=== PATIENT | male | born 1935 | race Caucasian/White ===

== ENCOUNTER → 2016-07-02 | Outpatient (CLI) | payer OTHER ==
--- NOTE | 2016-07-02 11:48 | DIAGNOSTIC IMAGING REPORT ---
MRI OF THE BRAIN WITHOUT IV CONTRAST CLINICAL HISTORY: Chronic daily headache. COMPARISON STUDY: No priors. TECHNIQUE: MRI of the brain was performed utilizing various T1 and T2-weighted sequences in the axial, sagittal, and coronal planes. IV contrast was not administered for this examination. FINDINGS: Brain parenchyma: There are age-related involutional changes noting mild patchy subcortical and periventricular microangiopathic disease. There is no hemorrhage or mass effect. There is no restricted diffusion to suggest acute ischemia. Melendez-white matter differentiation is preserved. No extra-axial fluid collection is seen. The cerebellar tonsils are normal in configuration. Ventricles, sulci, and cisterns: Prominent secondary to involutional change. Pituitary and sella: Unremarkable. Intracranial vasculature: Normal flow voids are maintained at the skull base. Orbits: The bony orbits are grossly intact. Orbital contents are normal in appearance noting bilateral ocular lens implants. Sinuses and mastoids: There is moderate mucosal thickening within the left ethmoid sinuses in the left frontal sinus. Mild mucosal thickening is seen within the maxillary antrum, left sphenoid sinus, and the right ethmoid sinuses. The mastoid air cells are well pneumatized. Calvarium: Unremarkable. Cervical cord: Partially visualized cervical spinal cord is normal in morphology and signal intensity. IMPRESSION: 1. No acute intracranial abnormality. 2. Paranasal sinus disease as above. Electronically signed by: Puneet Coulter M.D. 07/02/2016 11:46 AM Dictated Date/Time: 07/02/2016 11:43 AM
== END | disposition home or self-care (01) ==
LOC: C.MRI 10:00
PROVIDERS: ATTEND Family Medicine
DX: H53.2 Diplopia (principal); R51 Headache; J32.8 Other chronic sinusitis

== ENCOUNTER → 2016-07-07 | Outpatient (CLI) | payer OTHER ==
[2016-07-07 13:27] LABS: ALT/SGPT 26 U/L (12-78); BLOOD UREA NITROGEN 31 mg/dl (7-18); BUN/CREATININE RATIO 17.2 (10-20); CALCIUM 9.5 mg/dl (8.5-10.1); CARBON DIOXIDE 29 mmol/L (21-32); CHLORIDE 104 mmol/L (98-107); CHOLESTEROL 153 mg/dl (0-200); GLUCOSE 130 mg/dl (70-99); POTASSIUM 4.1 mmol/L (3.5-5.1); SODIUM 140 mmol/L (136-145)
[2016-07-07 13:30] LABS: ALB/GLOB RATIO 1.2 (0.9-2); ALKALINE PHOSPHATASE 70 U/L (45-117); AST/SGOT 20 U/L (15-37); CHOLESTEROL/HDL RATIO 3.1; HDL CHOLESTEROL 50 mg/dl; LDL CHOLESTEROL CALCULATED 69 mg/dl; TRIGLYCERIDES 168 mg/dl (0-150); VERY LOW DENSITY LIPOPROT CALC 34 mg/dl
[2016-07-07 13:57] LABS: ESTIMATED AVERAGE GLUCOSE 151 mg/dl; HA1C FLAG Normal (Normal)
[2016-07-07 13:58] LABS: RATIO 17.8 mcg/mg (0-30.0)
== END | disposition home or self-care (01) ==
LOC: C.LABMFLN 07:46
PROVIDERS: ATTEND Family Medicine
DX: E11.9 Type 2 diabetes mellitus without complications (principal); E78.00 Pure hypercholesterolemia, unspecified; I10 Essential (primary) hypertension

== ENCOUNTER → 2016-12-30 | Outpatient (CLI) | payer OTHER ==
[2016-12-30 13:13] LABS: ESTIMATED AVERAGE GLUCOSE 151 mg/dl; HA1C FLAG Normal (Normal)
[2016-12-30 13:22] LABS: ALT/SGPT 26 U/L (12-78); AST/SGOT 20 U/L (15-37); BLOOD UREA NITROGEN 27 mg/dl (7-18); BUN/CREATININE RATIO 17.7 (10-20); CALCIUM 8.9 mg/dl (8.5-10.1); CARBON DIOXIDE 29 mmol/L (21-32); CHLORIDE 107 mmol/L (98-107); GLUCOSE 132 mg/dl (70-99); POTASSIUM 3.8 mmol/L (3.5-5.1); SODIUM 141 mmol/L (136-145)
[2016-12-30 13:25] LABS: ALB/GLOB RATIO 1.2 (0.9-2); ALKALINE PHOSPHATASE 77 U/L (45-117); CHOLESTEROL 123 mg/dl (0-200); CHOLESTEROL/HDL RATIO 2.7; HDL CHOLESTEROL 46 mg/dl; LDL CHOLESTEROL CALCULATED 54 mg/dl; TRIGLYCERIDES 113 mg/dl (0-150); VERY LOW DENSITY LIPOPROT CALC 23 mg/dl
== END | disposition home or self-care (01) ==
LOC: C.LABMFLN 08:27
PROVIDERS: ATTEND Family Medicine
DX: E11.9 Type 2 diabetes mellitus without complications (principal); E78.00 Pure hypercholesterolemia, unspecified; I10 Essential (primary) hypertension

== ENCOUNTER 2020-11-19 09:40 | Inpatient (IN) ==
--- NOTE | 2020-11-05 11:50 | PAT Medication Instructions ---
Medication Instructions Date of Service November 05, 2020 Home Medications Medication Instructions Recorded atenolol 100 mg-chlorthalidone 25 1 tab PO DAILY #90 tab 01/04/20 mg tablet pravastatin 80 mg tablet 80 mg PO DAILY #90 tab 01/04/20 allopurinol 100 mg tablet 100 mg PO BID #180 tab 04/18/20 gabapentin 100 mg capsule 100 mg PO TID #270 cap 05/26/20 metformin 500 mg tablet 500 mg PO DAILY #90 tab 10/13/20 atenolol 100 mg-chlorthalidone 25 mg tablet 1 tab PO DAILY pravastatin 80 mg tablet 80 mg PO DAILY allopurinol 100 mg tablet 100 mg PO BID gabapentin 100 mg capsule 100 mg PO TID metformin 500 mg tablet 500 mg PO DAILY DO NOT take the morning of surgery metformin 500 mg tablet 500 mg PO DAILY Take morning of surgery With a small sip of water, OTHERWISE NOTHING TO EAT OR DRINK AFTER MIDNIGHT: atenolol 100 mg-chlorthalidone 25 mg tablet 1 tab PO DAILY pravastatin 80 mg tablet 80 mg PO DAILY allopurinol 100 mg tablet 100 mg PO BID gabapentin 100 mg capsule 100 mg PO TID Take evening before surgery allopurinol 100 mg tablet 100 mg PO BID gabapentin 100 mg capsule 100 mg PO TID Other Notes If you have any questions please call us at [phone] or [phone] or [phone] or [phone]
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
[~2020-11-19 09:40] MED LIST: ACETAMINOPHEN 500 MG TAB PO SCH; BUPIVACAINE 0.5 % 5 MG/1 ML PF 10ML VIAL ONE; CeleBREX 200 MG CAP PO SCH; FAMOTIDINE 20 MG TAB PO SCH; GLYCOPYRROLATE 0.2 MG/ML VIAL ONE; LIDOCAINE 2% 2 ML VIAL/AMP(20MG/ML) INFIL ONE; LR 15ML/HR IV SCH; METOCLOPRAMIDE HCL 10 MG TABLET PO SCH; MIDAZOLAM HCL 1 MG/ML 2ML VIAL ONE; PROPOFOL IV EMULSION 10 MG/ML 20 ML VIAL IV ONE; ROPIVACAINE 0.5% 5 MG/ML 30 ML VIAL ONE; ROPIVACAINE 0.5% HCL/PF 150 MG, BUPIVACAINE 0.75% MPF 20 ML, EPINEPHrine 30MG/30ML (OR ... INSTIL SCH; Scopolamine 1 MG TDSY TD SCH; TRANEXAMIC ACID 1,000 MG **IV Intra-op IV SCH; TRANEXAMIC ACID 1,000 MG **IV Pre-op IV SCH; ceFAZolin 1000MG 1,000 MG/7.5 ML SYR IV SCH; fentaNYL citrate 100 MCG/2 ML VIAL ONE
[2020-11-19] MEDS ORDERED: ONDANSETRON INJ 2 MG/ML 2 ML VIAL IV PRN ×2 (10:39→16:48)
[2020-11-19] MEDS ORDERED: ePHEDrine sulfate 50 MG/ML AMP IV PRN (10:39)
[2020-11-19] MEDS ORDERED: fentaNYL citrate 100 MCG/2 ML VIAL IV PRN (10:39)
[2020-11-19] MEDS ORDERED: ATROPINE SULFATE 0.1 MG/ML 10ML SYR IV PRN (10:39)
[2020-11-19] MEDS ORDERED: HYDROmorphone INJ 2 MG/ML SYR/VIAL IV PRN (10:39)
[2020-11-19] MEDS: GABAPENTIN 300 MG CAP PO SCH ×2 (10:42→11:05)
--- NOTE | 2020-11-19 12:01 | History & Physical Bridge Note ---
Date of Service November 19, 2020 History & Physical Bridge Note I have examined the patient, reviewed the History & Physical and in the interval since the performance of the History & Physical I have noted the following changes of clinical significance: no changes noted
[2020-11-19] MEDS ORDERED: ORTHO JOINT ANESTHETIC ONE (12:05)
[2020-11-19] MEDS ORDERED: ePHEDrine sulfate 50 MG/ML SYR ONE (12:29)
[2020-11-19] MEDS ORDERED: PROPOFOL IV EMULSION 10 MG/ML 20 ML VIAL IV ONE ×2 (13:51→14:13)
--- NOTE | 2020-11-19 14:41 | Operative Report ---
Post Operative Report Pre & Post Diagnosis Operation Date: 11/19/20 11:25 Pre-Op Diagnosis: Unilateral Primary Osteoarthritis, Left Knee Post-Op Diagnosis: Unilateral Primary Osteoarthritis, Left Knee I identified the patient and participated in the time-out.: Yes Procedure Operation Date: 11/19/20 11:25 Actual Procedures p Left Total Knee Arthroplasty(Left), lateral release, superficial wound VAC- Archie Foley MD Surgeon Archie Foley MD Bit Grinder Gray MALIK Estimated Blood Loss 5 Findings Consistent with Post-Op Diagnosis Specimens Bone cuts Drains Hemovac Anesthesia Type MAC Spinal Regional Complications none Indications 85-year-old male with severe osteoarthritis in his left knee. Patient is [id number] has marked subluxation of the femur on the tibia and significant instability. Patient is [id number] medial and lateral compartments. Description of Procedure Patient taken to the operating room the size under spinal MAC regional anesthesia. Patient was placed supine on the operating table. A pneumatic tourniquet was placed about the left upper thigh. The left lower extremity was prepped and draped in sterile fashion. Knee exam demonstrated marked instability into varus and positive Reji exam. Patient good range of motion with 0 through 140 degrees range of motion. The leg was elevated exsanguinated with an Esmarch bandage and pneumatic tourniquet was raised to 300 millimeters of mercury. Skin incised sharply in longitudinal fashion. Subcutaneous flaps elevated. Incision was made through the medial retinaculum extending up in the mid third of the quadriceps tendon and down to the medial tibial tubercle. Intra-articular findings demonstrated severe tricompartmental osteoarthritis with complete eburnated bone medial and lateral compartments with significant bone loss in the medial tibial plateau posterior medially there was a chronic ACL tear and meniscus tears medial and lateral. The Skeed triathlon total knee arthroplasty system was used. To expose the knee the infrapatellar fat pad was resected. The meniscal remnants and posterior cruciate ligament were resected. The anterior fat pad over the femur in the area of the anterior flange of the femoral component was resected. Lateral synovial bands release. Some partial synovectomy was performed removing most of the inflamed synovial tissue. The femur was exposed. An intramedullary drill hole was made into the canal. A guide mary was placed. Distal femoral cutting guide was adjusted to resect a 5 degree valgus cut with 8 millimeters distal femur resected. After distal femoral cut this exposed a large cyst within the lateral femoral condyle measured at 2 x 3 and half centimeters. There was a good shell of cortical bone surrounding the cyst. The cyst material was curetted out thoroughly removing all this material down to exposed bone. The knee was extended and a subperiosteal peel lateral release was performed around the patella. Patella width was measured and width was reproduced using a freehand cut technique and a 33 x 9 symmetrical patella component. The 3 drill holes were made and the excess lateral facet was beveled off to prevent any impingement. Attention was taken back to the femur which was exposed with retractors and the femoral sizing guide was pinned in position. The drill holes were placed in 3 of external rotation to match epicondylar axis. Because the lateral hole was in the cyst area we had marked the epicondylar axis and reproduce this with the cutting guide placement. Femur sized for a 6 left posterior stabilized component. The 4-in-1 cutting block was placed and then the anterior posterior and chamfer cuts are made. The tibia was then subluxed. The external tibial cutting guide was just to make a perpendicular cut to the long axis of the tibia below the most deficient bone loss side. A lamina aligning inspector was used and the flexion extension gaps were balanced. This required medial posterior medial release and pie crusting MCL. All posterior osteophytes removed. All meniscal remnants were resected. A tibial cyst was curetted out which was smaller than the femoral cyst. The tibia exposed and the trial tibial component size 5 was externally rotated in line with the tibial tubercle and pinned in position. The punch for stem was used. The notch cutting device was centered appropriately and the femoral notch cut was made. The femoral trial was inserted. Trial tibial inserts were placed and size 13 gave balanced ligaments through flexion and extension. Patella tracking was assessed. The patella tracked slight lateral liftoff so a lateral release performed extra-articular leaving synovium intact and the patella tracked centrally. The trial components were then removed and the orthomix anesthetic cocktail was injected per protocol. The knee was then copiously irrigated with pulsatile lavage saline solution. Final components were then cemented with Simplex cement. Final components were 6 left posterior stabilized triathlon femoral component with distal fixation pegs, 5 universal tibial baseplate, 5 x 13 posterior stabilized tibial bearing insert and a 33 x 9 symmetrical patella.. After the cement cured the Betadine soak was used per protocol. Then pulsatile lavage irrigation performed and 2 Hemovac drains were brought out laterally. The quadriceps tendon and medial retinaculum were closed with figure of 8 #1 Vicryl sutures. The knee was taken through full range of motion and the repair was secure. The subcutaneous tissues were closed with 2-0 Vicryl sutures. Skin was closed with mike. A superficial wound VAC zack and Acticoat were applied. Patient procedure well. Gray MALIK was my physician retail event and sales assistant who assisted in patient positioning prepping and draping,leg positioning ,soft tissue retraction and instrument management and participated in the closing and will participate in postoperative care of the patient. The patient tolerated the procedure well. I attest to the content of the Intraoperative Record and any orders documented therein. Any exceptions are noted below.
--- NOTE | 2020-11-19 15:50 | XRay Report ---
LEFT KNEE 2 VIEWS History: Left total knee arthroplasty. Degenerative arthritis. Postop. FINDINGS: The patient is status post a left total knee arthroplasty. The hardware is intact. No fract ure or dislocation. Skin mike and surgical drains are in place. IMPRESSION: Left total knee arthroplasty. No evidence for hardware complication. ACT 112: Negative or not required by law. Electronically signed by: Be Palafox M.D. 11/19/2020 3:49 PM
[2020-11-19] MEDS ORDERED: TAMSULOSIN HCL 0.4 MG CAP PO PRN (16:48)
[2020-11-19] MEDS ORDERED: PHARMACY GLYCEMIC MGMT CONSULT PRN (16:48)
[2020-11-19] MEDS ORDERED: bisacodyL 10 MG SUPP PR PRN (16:48)
[2020-11-19] MEDS ORDERED: MAGNESIUM HYDROXIDE SUSP 30 ML UDC PO PRN (16:48)
[2020-11-19] MEDS ORDERED: HYDROmorphone INJ 0.5 MG/0.5 ML SYR IV PRN (16:48)
[2020-11-19] MEDS ORDERED: NALOXONE HCL 0.4 MG/1 ML VIAL/CARP IV PRN (16:48)
[2020-11-19] MEDS ORDERED: METOCLOPRAMIDE HCL INJ 5 MG/ML 2 ML VIAL IV PRN (16:48)
--- NOTE | 2020-11-19 16:59 | Anesthesiology Progress Note ---
Date of Service November 19, 2020 Anesthesia Post Procedure Vital Signs Vital Signs: Temp Pulse Pulse Resp BP BP Pulse Ox 11/19/20 16:00 36.1 C L 70 16 112/75 92 11/19/20 15:50 79 17 121/75 91 11/19/20 15:40 91 H 19 129/78 93 11/19/20 15:30 87 18 108/72 93 11/19/20 15:20 91 H 22 119/70 99 11/19/20 15:10 36.3 C L 98 H 15 113/76 98 11/19/20 11:50 85 21 124/66 95 11/19/20 10:16 36.4 C L 84 18 151/58 H 95 Transfer of Care Handoff Completed per policy Notes Mental Status: alert / awake / arousable and participated in evaluation Patient Amnestic to Procedure: Yes Nausea / Vomiting: adequately controlled Pain: adequately controlled Airway Patency, RR, SpO2: stable & adequate BP & HR: stable & adequate Hydration State: stable & adequate Anesthetic Complications: no major complications apparent
[2020-11-19] MEDS: SODIUM CHLORIDE 0.9% 1000ML 1,000 ML IV SCH (17:48)
[2020-11-19] MEDS: Scopolamine CHECK PATCH PLACEMENT SCH ×2 (17:50→23:32)
[2020-11-19] MEDS: INSULIN ASPART 100 UNITS/ML 3 ML PEN SC SCH ×2 (18:25→21:06)
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
[2020-11-19] MEDS ORDERED: DEXTROSE 50% 50 ML SYRINGE IV PRN (19:42)
[2020-11-19] MEDS ORDERED: GLUCOSE 40% GEL 15 GM TUBE PO PRN (19:42)
[2020-11-19] MEDS ORDERED: GLUCAGON FOR INJ 1 MG VIAL SQ PRN (19:42)
[2020-11-19] MEDS ORDERED: GLUCOSE 10 TABS/TUBE PO PRN (19:42)
[2020-11-19] MEDS ORDERED: CARBOHYDRATES FOR HYPOGLYCEMIA PO PRN (19:42)
--- NOTE | 2020-11-19 19:56 | Pharmacy Report ---
Glycemic Ortho Sign Off Note - Date of Service November 19, 2020 - Scope Glycemic Pharmacist consulted for glycemic control and to write orders per [facility] inpatient glycemic control protocol. - Objective Accuchecks BSG (last 24hrs):: 11/19/20 11/19/20 11/19/20 09:57 15:18 16:57 POC Glucose 146 H 114 H 127 H - Assessment * Pt is maintained on oral antidiabeticagent[s]as anoutpatient with excellent control per recent A1c * Oral agents are not recommended for inpatient use d/t drug interactions, changing PO intake, and difficulty titrating for acute hyper/hypoglycemia. * Recommended regimen for inpatient use is SQ insulin * Low stress weight based insulin dosing appropriate since patient has minimal risk factors for insulin resistance (i.e. no steroids). * Appropriate to DC insulin and resume outpatient antidiabetic regimen at discharge * Goal is to maintain BSGs <200 mg/dl (ideally <150 mg/dl) to prevent post op complications - Plan For Inpatient Glycemic Control * Basal insulin * Not needed based on A1c, pre-op BSGs, and minimal risk factors for insulin resistance * Bolus insulin * Utilize low stress weight based NovoLog parameters per scale ACHS * Pharmacy has entered glycemic orders and is signing off of the glycemic consult. We will no longer be making adjustments to inpatient regimen. Please feel free to re-consult if needed. Thank you.
[2020-11-19] MEDS: ceFAZolin 1000MG 1,000 MG/7.5 ML SYR IV SCH (21:02)
[2020-11-19] MEDS: allopurinoL 100 MG TAB PO SCH (21:03)
[2020-11-19] MEDS: ACETAMINOPHEN 500 MG TAB PO SCH (21:03)
[2020-11-19] MEDS: GABAPENTIN 100 MG CAP PO SCH (21:04)
[2020-11-19] MEDS: DOCUSATE SODIUM 100 MG CAP PO SCH (21:04)
[2020-11-19] MEDS: SENNA 8.6 MG TAB PO SCH (21:05)
[2020-11-20] MEDS: SODIUM CHLORIDE 0.9% 1000ML 1,000 ML IV SCH (04:35)
[2020-11-20] MEDS: ceFAZolin 1000MG 1,000 MG/7.5 ML SYR IV SCH (04:36)
[2020-11-20] MEDS: ACETAMINOPHEN 500 MG TAB PO SCH ×3 (06:07→20:10)
[2020-11-20 06:11] LABS: Hematocrit (blood only) 37.5 % (42-52); Hemoglobin 12.5 g/dL (14.0-18.0); Mean Corpuscular Hemoglobin 30.9 pg (25-34); Mean Corpuscular Hgb Conc 33.3 g/dL (32-36); Mean Corpuscular Volume 92.8 fL (80-100); Mean Platelet Volume 10.1 fL (7.4-10.4); Platelet Count 259 K/uL (130-400); RDW Coefficient of Variation 14.9 % (11.5-14.5); RDW Standard Deviation 50.9 fL (36.4-46.3); Red Blood Count 4.04 M/uL (4.7-6.1); White Blood Count 10.82 K/uL (4.8-10.8)
[2020-11-20 06:31] LABS: BUN Creatinine Ratio 18.6 (10-20); Calcium 8.2 mg/dl (8.5-10.1); Creatinine Clr Calc Pharmacy 28.8 ml/min; Est GFR (African American) 37.6 ml/min; Est GFR (Non-African American) 32.5 ml/min
[2020-11-20 06:35] LABS: Potassium 4.1 mmol/L (3.5-5.1)
[2020-11-20] MEDS: Scopolamine CHECK PATCH PLACEMENT SCH ×3 (08:34→23:52)
[2020-11-20] MEDS: DOCUSATE SODIUM 100 MG CAP PO SCH ×2 (08:37→20:11)
[2020-11-20] MEDS: MULTIVITAMIN TAB PO SCH (08:37)
[2020-11-20] MEDS: GABAPENTIN 100 MG CAP PO SCH ×3 (08:37→20:11)
[2020-11-20] MEDS: allopurinoL 100 MG TAB PO SCH ×2 (08:37→20:11)
[2020-11-20] MEDS: PRAVASTATIN SOD 40 MG TAB PO SCH (08:37)
[2020-11-20] MEDS: ATENOLOL 50 MG TABLET PO SCH (08:37)
[2020-11-20] MEDS: INSULIN ASPART 100 UNITS/ML 3 ML PEN SC SCH ×4 (08:41→21:43)
--- NOTE | 2020-11-20 09:00 | Hospitalist Progress Note ---
Date of Service November 20, 2020 Assessment & Plan (1) S/P total knee arthroplasty: Plan: Ajit Coppola is a 85-year-old male with past medical history significant for type 2 diabetes, gout, atrial fibrillation, hyperlipidemia; who the hospitalist were consulted for medical management status post left total knee arthroplasty. Atrial fibrillation: -Patient with rate controlled atrial fibrillation on atenolol and Eliquis at home -Continue atenolol 50 mg daily -We will hold Eliquis in the immediate postoperative setting -Discussed with patient that given his chads vascular score ultimately would require long-term anticoagulation however at this time can be held tentatively given good rate control -Plan to restart Eliquis for DVT prevention once postoperative him hemostasis is assured Hypertension: -Continue home atenolol Type 2 diabetes: -At home was on Metformin 500 mg daily -Last A1c of 7.7 -Hold home oral glycemic regimen at this time -Sliding scale insulin ordered, given good glycemic control will not utilize basal insulin -BSGs AC at bedtime with PRN hypoglycemic orders available Hypercholesterolemia: -Continue pravastatin Gout: -Continue allopurinol 100 mg BID Diet: Carb consistent/heart healthy (2) HTN (hypertension): (3) Atrial fibrillation: (4) Type 2 diabetes mellitus: (5) Hypercholesterolemia: (6) BPPV (benign paroxysmal positional vertigo): (7) Acute blood loss anemia: Plan: not in transfusion range at this time (8) Acute kidney injury: Plan: likely from atn from hypoperfusion, will run some ivf Admission and Anticipated Discharge Date Admission Date: November 19, 2020 Subjective Patient was seen after breakfast he is in good condition only having very mild knee discomfort reportedly had some confusion overnight may be medication related Review of Systems Review of Systems: Mild distress and fatigue no headache, no visual changes no speech or swallowing issues no chest pain, pressure or palpitations no shortness of breath, cough or wheezes no abdominal pain, nausea or vomiting, diarrhea or constipation no dysuria, hematuria or frequency Postoperative left knee pain no back pain, CVA tenderness or radicular pain no bruising, bleeding or rashes no focal signs of weakness or numbness or altered sensation no complaints of anxiety or depression.. Physical Exam Physical Exam: The patient appeared well nourished and normally developed. Vital signs as documented. Head exam is normocephalic atraumatic Neck is without JVD, thyromegaly, or carotid bruits. Lungs are clear to auscultation, no focal loss of breath sounds Cardiac exam, Rhythm is regular.. No murmurs, rubs or gallops. Abdominal exam reveals normal bowel sounds, soft non tender, no masses Extremities good distal pulses and capillary refill with sensation to his left leg. His left leg has ice and a brace on it right now Neurologic exam is alert and oriented, no focal loss of strength or sensation Skin is without bruises or rashes other than the operative site Psychologically is without concerns for anxiety or depression Results & Data Results & Data ([facility]) Vital Signs (Past 12 Hours) Vital Signs Temp Pulse Resp BP Pulse Ox 11/20/20 07:44 98.1 F 70 18 110/69 92 11/20/20 03:00 97.3 F L 68 20 100/60 91 11/19/20 22:31 97.5 F L 77 20 115/76 95 PG Care Time/CCT Total # of Minutes Spent Total Time Spent with Patient: Total time spent is greater than 50% in coordination of care (as documented) at patient's floor/unit and/or counseling patient: Coding Level of Care Code 62531 Subseq Hosp Care Lvl 2 Diagnoses S/P total knee arthroplasty Z96.659 HTN (hypertension) I10 Atrial fibrillation I48.91 Atrial fibrillation type: unspecified Type 2 diabetes mellitus E11.9 Hypercholesterolemia E78.00 BPPV (benign paroxysmal positional vertigo) H81.10 Acute blood loss anemia D62 Acute kidney injury N17.9 (1) Atrial fibrillation Atrial fibrillation type: unspecified Qualified Code(s): I48.91 - Unspecified atrial fibrillation
--- NOTE | 2020-11-20 09:03 | Orthopedic Progress Note ---
Date of Service November 20, 2020 Assessment & Plan (1) Osteoarthritis of left knee: Plan: Postop day 1 status post left total knee arthroplasty. PT/OT protocols. Weightbearing as tolerated. DVT prophylaxis-apixaban p.o. twice daily, SCDs, KAYLEY stallings. Pain management as written. Slight increase in his creatinine this morning compared to preop. 1.8 from 1.5 Admission and Anticipated Discharge Date Admission Date: November 19, 2020 Subjective Postop day 1 Patient sitting up in bed awake and alert. Eating breakfast. Nursing stated that he was somewhat confused last night but seems to be mentating well this morning. Patient states he feels well and knows that he is in the hospital in [facility]. He has good pain control this morning. He denies any shortness of breath, chest pain, lightheadedness. Physical Exam Physical Exam: Dressings are clean, dry, and intact. Calves are soft and nontender. Neurovascular intact. Toes are mobile. Hemovac drainage was 200 mL from the previous shift. Results & Data ([facility]) Vital Signs (Past 12 Hours) Vital Signs Temp Pulse Resp BP Pulse Ox 11/20/20 07:44 36.7 C 70 18 110/69 92 11/20/20 03:00 36.3 C L 68 20 100/60 91 11/19/20 22:31 36.4 C L 77 20 115/76 95 Laboratory Results Laboratory Results WBC 10.82 K/uL (4.8-10.8) H 11/20/20 05:54 RBC 4.04 M/uL (4.7-6.1) L 11/20/20 05:54 Hgb 12.5 g/dL (14.0-18.0) L 11/20/20 05:54 Hct 37.5 % (42-52) L 11/20/20 05:54 MCV 92.8 fL (80-100) 11/20/20 05:54 MCH 30.9 pg (25-34) 11/20/20 05:54 MCHC 33.3 g/dL (32-36) 11/20/20 05:54 RDW Std Deviation 50.9 fL (36.4-46.3) H 11/20/20 05:54 RDW Coeff of Bert 14.9 % (11.5-14.5) H 11/20/20 05:54 Plt Count 259 K/uL (130-400) 11/20/20 05:54 MPV 10.1 fL (7.4-10.4) 11/20/20 05:54 Sodium 137 mmol/L (136-145) 11/20/20 05:54 Potassium 4.1 mmol/L (3.5-5.1) 11/20/20 05:54 Chloride 107 mmol/L (98-107) 11/20/20 05:54 Carbon Dioxide 27 mmol/L (21-32) 11/20/20 05:54 Anion Gap 3.0 (3-11) 11/20/20 05:54 BUN 34 mg/dl (7-18) H 11/20/20 05:54 Creatinine 1.84 mg/dl (0.6-1.4) H 11/20/20 05:54 Est Cr Clr Drug Dosing 28.8 ml/min 11/20/20 05:54 Est GFR ( Amer) 37.6 ml/min 11/20/20 05:54 Est GFR (Non-Af Amer) 32.5 ml/min 11/20/20 05:54 BUN/Creatinine Ratio 18.6 (10-20) 11/20/20 05:54 Glucose 134 mg/dl (70-99) H 11/20/20 05:54 POC Glucose 125 mg/dl (70-99) H 11/20/20 08:21 Calcium 8.2 mg/dl (8.5-10.1) L 11/20/20 05:54 COVID-19 Eval Order Covid19 IDNow [facility] 11/19/20 09:59 SARS-CoV-2, RNA, NAAT NEGATIVE (NEGATIVE) 11/19/20 09:59 Impressions Knee X-Ray 11/19/20 15:12 LEFT KNEE 2 VIEWS History: Left total knee arthroplasty. Degenerative arthritis. Postop. FINDINGS: The patient is status post a left total knee arthroplasty. The hardware is intact. No fracture or dislocation. Skin mike and surgical drains are in place. IMPRESSION: Left total knee arthroplasty. No evidence for hardware complication. ACT 112: Negative or not required by law. Electronically signed by: Be Palafox M.D. 11/19/2020 3:49 PM
[2020-11-20] MEDS ORDERED: SODIUM CHLORIDE 0.9% 500 ML IV SCH (15:15)
[2020-11-20] MEDS: SENNA 8.6 MG TAB PO SCH (20:10)
--- NOTE | 2020-11-20 21:37 | Billing Data ---
Date of Service November 20, 2020 Coding Level of Care Code 56280 Inpt Consult Level 3
[2020-11-21] MEDS: ACETAMINOPHEN 500 MG TAB PO SCH ×3 (05:08→20:03)
--- NOTE | 2020-11-21 07:19 | Hospitalist Progress Note ---
Date of Service November 21, 2020 Assessment & Plan (1) S/P total knee arthroplasty: Plan: Ajit Coppola is a 85-year-old male with past medical history significant for type 2 diabetes, gout, atrial fibrillation, hyperlipidemia; who the hospitalist were consulted for medical management status post left total knee arthroplasty. Atrial fibrillation: -Remains rate controlled atrial fibrillation on atenolol and Eliquis, Eliquis has been restarted at 2.5 twice daily by surgical team Hypertension: -Currently normotensive in the postoperative period -Continue home atenolol as above Postoperative acute kidney injury likely from operative stress we will continue to follow, infuse additional 500 mL of crystalloid solution overnight check creatinine in the morning Acute blood loss anemia without the risk of need for transfusion at this time Type 2 diabetes: - hold home Metformin 500 mg daily -Last A1c of 7.7 -Sliding scale insulin ordered Hypercholesterolemia:-Continue pravastatin Gout: -Continue home allopurinol 100 mg BID Diet: Carb consistent/heart healthy (2) HTN (hypertension): (3) Atrial fibrillation: (4) Type 2 diabetes mellitus: (5) Hypercholesterolemia: (6) BPPV (benign paroxysmal positional vertigo): Admission and Anticipated Discharge Date Admission Date: November 19, 2020 Subjective doing well post op BP stable Review of Systems Review of Systems: Mild distress and fatigue no headache, no visual changes no speech or swallowing issues no chest pain, pressure or palpitations no shortness of breath, cough or wheezes no abdominal pain, nausea or vomiting, diarrhea or constipation no dysuria, hematuria or frequency Postoperative left knee pain no back pain, CVA tenderness or radicular pain no bruising, bleeding or rashes no focal signs of weakness or numbness or altered sensation no complaints of anxiety or depression.. Physical Exam Physical Exam: The patient appeared well nourished and normally developed. Vital signs as documented. Head exam is normocephalic atraumatic Neck is without JVD, thyromegaly, or carotid bruits. Lungs are clear to auscultation, no focal loss of breath sounds Cardiac exam, Rhythm is regular.. No murmurs, rubs or gallops. Abdominal exam reveals normal bowel sounds, soft non tender, no masses Extremities good distal pulses and capillary refill with sensation to his left leg. His left leg has ice and a brace on it right now Neurologic exam is alert and oriented, no focal loss of strength or sensation Skin is without bruises or rashes other than the operative site Psychologically is without concerns for anxiety or depression Results & Data Results & Data ([facility]) Vital Signs (Past 12 Hours) Vital Signs Temp Pulse Resp BP Pulse Ox 11/21/20 06:33 97.3 F L 65 16 110/62 92 11/20/20 21:27 97.5 F L 73 16 99/61 L 92 PG Care Time/CCT Total # of Minutes Spent Total Time Spent with Patient: Total time spent is greater than 50% in coordi nation of care (as documented) at patient's floor/unit and/or counseling patient: Coding Level of Care Code 29120 Subseq Hosp Care Lvl 2 Diagnoses S/P total knee arthroplasty Z96.659 HTN (hypertension) I10 Atrial fibrillation I48.91 Atrial fibrillation type: unspecified Type 2 diabetes mellitus E11.9 Hypercholesterolemia E78.00 BPPV (benign paroxysmal positional vertigo) H81.10 (1) Atrial fibrillation Atrial fibrillation type: unspecified Qualified Code(s): I48.91 - Unspecified atrial fibrillation
--- NOTE | 2020-11-21 07:32 | Orthopedic Progress Note ---
Date of Service November 21, 2020 Assessment & Plan (1) Osteoarthritis of left knee: Plan: Postop day 1 status post left total knee arthroplasty. PT/OT protocols. Weightbearing as tolerated. DVT prophylaxis-apixaban p.o. twice daily, SCDs, KAYLEY hose. Pain management as written. Slight increase in his creatinine this morning compared to preop. 1.8 from 1.5 Plan: Postop day 2 status post left total knee arthroplasty. PT/OT protocols. Weightbearing as tolerated. DVT prophylaxis-apixaban p.o. twice daily, SCDs, KAYLEY hose. Pain management as written. Slight increase in his creatinine yesterday morning compared to preop. 1.8 from 1.5. AM labs pending today D/C planning-PT/OT recommending inpatient rehab/SNF. Case management is working on this. Admission and Anticipated Discharge Date Admission Date: November 19, 2020 Subjective Patient doing well this morning, some mild discomfort but overall pain controlled. Denies chest pain, sob, dizziness, headache, fever, chills. Review of Systems Review of Systems: All systems reviewed & are unremarkable except as noted in Subjective Physical Exam Physical Exam: Left knee BRIGITTE dressing is in place, c/d/i. Mild bloody drainage from hemovac site, dressing fell off in bed. New dressing applied by me. No calf tenderness. Toes mobile, good dorsiflexion. Able to do SLR Constitutional: well developed and well nourished; no acute distress Results & Data ([facility]) Vital Signs (Past 12 Hours) Vital Signs Temp Pulse Resp BP Pulse Ox 11/21/20 06:33 36.3 C L 65 16 110/62 92 11/20/20 21:27 36.4 C L 73 16 99/61 L 92
[2020-11-21 08:32] LABS: BUN Creatinine Ratio 21.5 (10-20); Calcium 8.5 mg/dl (8.5-10.1); Creatinine Clr Calc Pharmacy 28.1 ml/min; Est GFR (African American) 36.4 ml/min; Est GFR (Non-African American) 31.4 ml/min; Potassium 4.1 mmol/L (3.5-5.1)
[2020-11-21] MEDS: MULTIVITAMIN TAB PO SCH (08:33)
[2020-11-21] MEDS: ATENOLOL 50 MG TABLET PO SCH (08:33)
[2020-11-21] MEDS: PRAVASTATIN SOD 40 MG TAB PO SCH (08:33)
[2020-11-21] MEDS: INSULIN ASPART 100 UNITS/ML 3 ML PEN SC SCH ×4 (08:33→21:08)
[2020-11-21] MEDS: allopurinoL 100 MG TAB PO SCH ×2 (08:34→20:03)
[2020-11-21] MEDS: DOCUSATE SODIUM 100 MG CAP PO SCH ×2 (08:34→20:04)
[2020-11-21] MEDS: GABAPENTIN 100 MG CAP PO SCH ×3 (08:34→20:03)
[2020-11-21] MEDS: APIXABAN 2.5 MG TAB PO SCH ×2 (09:43→20:03)
[2020-11-21] MEDS ORDERED: SODIUM CHLORIDE 0.9% 500 ML IV SCH (18:20)
[2020-11-21] MEDS: SENNA 8.6 MG TAB PO SCH (20:04)
[2020-11-22] MEDS: ACETAMINOPHEN 500 MG TAB PO SCH ×3 (05:32→20:45)
[2020-11-22 08:00] LABS: BUN Creatinine Ratio 25.1 (10-20); Calcium 8.3 mg/dl (8.5-10.1); Est GFR (African American) 54.2 ml/min; Est GFR (Non-African American) 46.8 ml/min; Potassium 4.1 mmol/L (3.5-5.1)
[2020-11-22] MEDS: MULTIVITAMIN TAB PO SCH (08:15)
[2020-11-22] MEDS: GABAPENTIN 100 MG CAP PO SCH ×3 (08:15→20:44)
[2020-11-22] MEDS: PRAVASTATIN SOD 40 MG TAB PO SCH (08:15)
[2020-11-22] MEDS: INSULIN ASPART 100 UNITS/ML 3 ML PEN SC SCH ×4 (08:15→20:38)
[2020-11-22] MEDS: APIXABAN 2.5 MG TAB PO SCH ×2 (08:15→20:45)
[2020-11-22] MEDS: ATENOLOL 50 MG TABLET PO SCH (08:15)
[2020-11-22] MEDS: allopurinoL 100 MG TAB PO SCH ×2 (08:15→20:44)
[2020-11-22] MEDS: DOCUSATE SODIUM 100 MG CAP PO SCH ×2 (08:16→20:45)
--- NOTE | 2020-11-22 15:57 | Orthopedic Progress Note ---
Date of Service November 22, 2020 Assessment & Plan (1) Osteoarthritis of left knee: Plan: Postop day 3 status post left total knee arthroplasty. PT/OT protocols. Weightbearing as tolerated. DVT prophylaxis-apixaban p.o. twice daily, SCDs, KAYLEY stallings. Pain management as written. D/C planning-PT/OT recommending inpatient rehab/SNF. He ambulated well at PT the past 2 days. However, with some underlying dementia, he would benefit from a rehabilitation stay. I spoke with case management today. He will require insurance authorization which will not happen until 11/24/2020. Admission and Anticipated Discharge Date Admission Date: November 21, 2020 Subjective Patient doing well this morning, some mild discomfort but overall pain cont rolled. Denies chest pain, sob, dizziness, headache, fever, chills. No changes from yesterday. Physical Exam Constitutional: WD/WN, vitals as above Musculoskeletal: Knee: + surgical incision (Left knee with zack dressing in place and functioning.); knee normal to inspection, no skin erythema, no ecchymosis, no valgus alignment and no varus alignment Neurologic: normal touch/pain/proprioception Psychiatric: Orientation: alert, oriented to place and cooperative Speech: normal rate/rhythm/volume of speech Results & Data ([facility]) Vital Signs (Past 12 Hours) Vital Signs Temp Pulse Resp BP Pulse Ox 11/22/20 06:33 36.6 C 71 16 120/75 94
--- NOTE | 2020-11-22 16:34 | Hospitalist Progress Note ---
Date of Service November 22, 2020 Assessment & Plan (1) S/P total knee arthroplasty: Plan: Ajit Coppola is a 85-year-old male with past medical history significant for type 2 diabetes, gout, atrial fibrillation, hyperlipidemia; who the hospitalist were consulted for medical management status post left total knee arthroplasty. Atrial fibrillation: -Remains rate controlled atrial fibrillation on atenolol and Eliquis, Eliquis has been restarted at 2.5 twice daily by surgical team Hypertension: -Currently normotensive in the postoperative period -Continue home atenolol as above Postoperative acute kidney injury likely from operative stress we will continue to follow, improved after ivf Acute blood loss anemia without the risk of need for transfusion at this time Type 2 diabetes: - hold home Metformin 500 mg daily -Last A1c of 7.7 -Sliding scale insulin ordered Hypercholesterolemia:-Continue pravastatin Gout: -Continue home allopurinol 100 mg BID Diet: Carb consistent/heart healthy (2) HTN (hypertension): (3) Atrial fibrillation: (4) Type 2 diabetes mellitus: (5) Hypercholesterolemia: (6) BPPV (benign paroxysmal positional vertigo): Admission and Anticipated Discharge Date Admission Date: November 21, 2020 Subjective pt has some intermittent confusion. Paresh has resolved, blood pressures are lower Review of Systems Review of Systems: Mild distress and fatigue no headache, no visual changes no speech or swallowing issues no chest pain, pressure or palpitations no shortness of breath, cough or wheezes no abdominal pain, nausea or vomiting, diarrhea or constipation no dysuria, hematuria or frequency Postoperative left knee pain no back pain, CVA tenderness or radicular pain no bruising, bleeding or rashes no focal signs of weakness or numbness or altered sensation no complaints of anxiety or depression.. Physical Exam Physical Exam: The patient appeared well nourished and normally developed. Vital signs as documented. Head exam is normocephalic atraumatic Neck is without JVD, thyromegaly, or carotid bruits. Lungs are clear to auscultation, no focal loss of breath sounds Cardiac exam, Rhythm is regular.. No murmurs, rubs or gallops. Abdominal exam reveals normal bowel sounds, soft non tender, no masses Extremities good distal pulses and capillary refill with sensation to his left leg. His left leg has ice and a brace on it right now Neurologic exam is alert and oriented, no focal loss of strength or sensation Skin is without bruises or rashes other than the operative site Psychologically is without concerns for anxiety or depression Results & Data Results & Data ([facility]) Vital Signs (Past 12 Hours) Vital Signs Temp Pulse Resp BP Pulse Ox 11/22/20 15:55 98.2 F 68 18 112/72 96 11/22/20 06:33 97.9 F 71 16 120/75 94 PG Care Time/CCT Total # of Minutes Spent Total Time Spent with Patient: Total time spent is greater than 50% in coordination of care (as documented) at patient's floor/unit and/or counseling patient: Coding Level of Care Code 98308 Subseq Hosp Care Lvl 1 Diagnoses S/P total knee arthroplasty Z96.659 HTN (hypertension) I10 Atrial fibrillation I48.91 Atrial fibrillation type: unspecified Type 2 diabetes mellitus E11.9 Hypercholesterolemia E78.00 BPPV (benign paroxysmal positional vertigo) H81.10 (1) Atrial fibrillation Atrial fibrillation type: unspecified Qualified Code(s): I48.91 - Unspecified atrial fibrillation
[2020-11-22] MEDS: SENNA 8.6 MG TAB PO SCH (20:45)
[2020-11-23] MEDS: ACETAMINOPHEN 500 MG TAB PO SCH ×3 (05:26→20:31)
[2020-11-23 07:48] LABS: Hematocrit (blood only) 32.4 % (42-52); Hemoglobin 10.8 g/dL (14.0-18.0); Mean Corpuscular Hemoglobin 30.3 pg (25-34); Mean Corpuscular Hgb Conc 33.3 g/dL (32-36); Mean Platelet Volume 10.1 fL (7.4-10.4); Platelet Count 313 K/uL (130-400); RDW Coefficient of Variation 15.1 % (11.5-14.5); RDW Standard Deviation 50.6 fL (36.4-46.3); Red Blood Count 3.56 M/uL (4.7-6.1); White Blood Count 6.73 K/uL (4.8-10.8)
[2020-11-23 08:16] LABS: BUN Creatinine Ratio 20.7 (10-20); Calcium 8.8 mg/dl (8.5-10.1); Est GFR (African American) 54.2 ml/min; Est GFR (Non-African American) 46.8 ml/min; Potassium 4.4 mmol/L (3.5-5.1)
[2020-11-23] MEDS: APIXABAN 2.5 MG TAB PO SCH ×2 (08:30→20:31)
[2020-11-23] MEDS: allopurinoL 100 MG TAB PO SCH ×2 (08:30→20:31)
[2020-11-23] MEDS: oxyCODONE HCL IR 5 MG TAB (IMMEDIATE RELEASE) PO PRN (08:30)
[2020-11-23] MEDS: ATENOLOL 50 MG TABLET PO SCH (08:30)
[2020-11-23] MEDS: PRAVASTATIN SOD 40 MG TAB PO SCH (08:30)
--- NOTE | 2020-11-23 08:30 | Orthopedic Progress Note ---
Date of Service November 23, 2020 Assessment & Plan (1) Osteoarthritis of left knee: Plan: Postop day 4 status post left total knee arthroplasty. PT/OT protocols. Weightbearing as tolerated. DVT prophylaxis-apixaban p.o. twice daily, SCDs, KAYLEY stallings. Pain management as written. D/C planning-PT/OT recommending inpatient rehab/SNF. He ambulated well at PT the past 2 days. However, with some underlying dementia, he would benefit from a rehabilitation stay. I spoke with case management yesterday. He will require insurance authorization which will not happen until 11/24/2020. Admission and Anticipated Discharge Date Admission Date: November 21, 2020 Subjective States the knee is a little sore this morning. Similar complaint that he had yesterday. Overall, pain is controlled. No other complaints today. Physical Exam Constitutional: WD/WN, vitals as above Musculoskeletal: Knee: + surgical incision (Left knee with zack dressing in place and functioning.); knee normal to inspection, no skin erythema, no ecchymosis, no valgus alignment and no varus alignment Neurologic: normal touch/pain/proprioception Psychiatric: Orientation: alert, oriented to place and cooperative Speech: normal rate/rhythm/volume of speech Results & Data ([facility]) Vital Signs (Past 12 Hours) Vital Signs Temp Pulse Resp BP Pulse Ox 11/23/20 08:23 36.7 C 107 H 18 112/76 95 11/22/20 21:40 36.6 C 81 16 117/66 95
[2020-11-23] MEDS: MULTIVITAMIN TAB PO SCH (08:31)
[2020-11-23] MEDS: DOCUSATE SODIUM 100 MG CAP PO SCH ×2 (08:31→20:28)
[2020-11-23] MEDS: GABAPENTIN 100 MG CAP PO SCH ×3 (08:31→20:31)
[2020-11-23] MEDS: INSULIN ASPART 100 UNITS/ML 3 ML PEN SC SCH ×4 (08:34→20:32)
--- NOTE | 2020-11-23 14:09 | Hospitalist Progress Note ---
Date of Service November 23, 2020 Assessment & Plan (1) S/P total knee arthroplasty: Plan: Ajit Coppola is a 85-year-old male with past medical history significant for type 2 diabetes, gout, atrial fibrillation, hyperlipidemia; who the hospitalist were consulted for medical management status post left total knee arthroplasty. Atrial fibrillation: -Remains rate controlled atrial fibrillation on atenolol and Eliquis, Eliquis has been restarted at 2.5 twice daily by surgical team Hypertension: -Currently normotensive in the postoperative period -Continue home atenolol as above Postoperative acute kidney injury likely from operative stress resolved/improved after ivf Acute blood loss anemia without the risk of need for transfusion at this time Type 2 diabetes: -Restart home Metformin 500 mg daily -Last A1c of 7.7 -Sliding scale insulin ordered Hypercholesterolemia:-Continue pravastatin Gout: -Continue home allopurinol 100 mg BID Diet: Carb consistent/heart healthy (2) HTN (hypertension): (3) Atrial fibrillation: (4) Type 2 diabetes mellitus: (5) Hypercholesterolemia: (6) BPPV (benign paroxysmal positional vertigo): Admission and Anticipated Discharge Date Admission Date: November 21, 2020 Subjective Patient offers no physical complaints. He is mildly confused at times. His blood pressure is controlled and his heart was slightly elevated prior to his beta-karly ministration. His previous acute kidney injury is resolved with hydration. His acute blood loss anemia stable and not need of transfusion. He has mild hyponatremia but this is trending in a favorable direction Review of Systems Review of Systems: Mild distress and fatigue no headache, no visual changes no speech or swallowing issues no chest pain, pressure or palpitations no shortness of breath, cough or wheezes no abdominal pain, nausea or vomiting, diarrhea or constipation no dysuria, hematuria or frequency Postoperative left knee pain no back pain, CVA tenderness or radicular pain no bruising, bleeding or rashes no focal signs of weakness or numbness or altered sensation no complaints of anxiety or depression.. Physical Exam Physical Exam: The patient appeared well nourished and normally developed. Vital signs as documented. Head exam is normocephalic atraumatic Neck is without JVD, thyromegaly, or carotid bruits. Lungs are clear to auscultation, no focal loss of breath sounds Cardiac exam, Rhythm is regular.. No murmurs, rubs or gallops. Abdominal exam reveals normal bowel sounds, soft non tender, no masses Extremities good distal pulses and capillary refill with sensation to his left leg. His left leg has ice and a brace on it right now Neurologic exam is alert and oriented, no focal loss of strength or sensation Skin is without bruises or rashes other than the operative site Psychologically is without concerns for anxiety or depression Results & Data Results & Data ([facility]) Vital Signs (Past 12 Hours) Vital Signs Temp Pulse Resp BP Pulse Ox 11/23/20 08:23 98.1 F 107 H 18 112/76 95 PG Care Time/CCT Total # of Minutes Spent Total Time Spent with Patient: Total time spent is greater than 50% in coordination of care (as documented) at patient's floor/unit and/or counseling patient: Coding Level of Care Code 99827 Subseq Hosp Care Lvl 2 Diagnoses S/P total knee arthroplasty Z96.659 HTN (hypertension) I10 Atrial fibrillation I48.91 Atrial fibrillation type: unspecified Type 2 diabetes mellitus E11.9 Hypercholesterolemia E78.00 BPPV (benign paroxysmal positional vertigo) H81.10 (1) Atrial fibrillation Atrial fibrillation type: unspecified Qualified Code(s): I48.91 - Unspecified atrial fibrillation
[2020-11-23] MEDS: SENNA 8.6 MG TAB PO SCH (20:28)
[2020-11-24] MEDS: oxyCODONE HCL IR 5 MG TAB (IMMEDIATE RELEASE) PO PRN ×2 (02:02→20:56)
[2020-11-24] MEDS: ACETAMINOPHEN 500 MG TAB PO SCH ×3 (05:58→20:58)
[2020-11-24 06:46] LABS: BUN Creatinine Ratio 22.6 (10-20); Calcium 8.9 mg/dl (8.5-10.1); Creatinine Clr Calc Pharmacy 41.1 ml/min; Est GFR (African American) 57.8 ml/min; Est GFR (Non-African American) 49.9 ml/min; Potassium 4.6 mmol/L (3.5-5.1)
[2020-11-24] MEDS: APIXABAN 2.5 MG TAB PO SCH ×2 (08:07→20:57)
[2020-11-24] MEDS: allopurinoL 100 MG TAB PO SCH ×2 (08:07→20:56)
[2020-11-24] MEDS: metFORMIN HCL 500 MG TAB PO SCH (08:08)
[2020-11-24] MEDS: GABAPENTIN 100 MG CAP PO SCH ×3 (08:08→20:57)
[2020-11-24] MEDS: ATENOLOL 50 MG TABLET PO SCH (08:08)
[2020-11-24] MEDS: DOCUSATE SODIUM 100 MG CAP PO SCH ×2 (08:08→20:57)
[2020-11-24] MEDS: MULTIVITAMIN TAB PO SCH (08:09)
[2020-11-24] MEDS: PRAVASTATIN SOD 40 MG TAB PO SCH (08:09)
[2020-11-24] MEDS: INSULIN ASPART 100 UNITS/ML 3 ML PEN SC SCH ×4 (08:13→20:55)
--- NOTE | 2020-11-24 09:18 | Orthopedic Progress Note ---
Date of Service November 24, 2020 Assessment & Plan (1) Osteoarthritis of left knee: Plan: Postop day 5 status post left total knee arthroplasty. PT/OT protocols. Weightbearing as tolerated. DVT prophylaxis-apixaban p.o. twice daily, SCDs, KAYLEY stallings. Pain management as written. D/C planning-PT/OT recommending inpatient rehab/SNF. Awaiting insurance authorization. Admission and Anticipated Discharge Date Admission Date: November 21, 2020 Subjective Postop day 5 Patient sitting in his chair at the bedside. Awake and alert. He just finished his physical therapy session. In good spirits. Pain is controlled. He states he is waiting to hear if he has been accepted to a skilled facility or not. No complaints at this time. Physical Exam Physical Exam: Anna dressing is clean, dry, and intact. Calves are soft nontender. Neurovascular is intact. Toes are mobile. Results & Data ([facility]) Vital Signs (Past 12 Hours) Vital Signs Temp Pulse Resp BP Pulse Ox 11/24/20 06:19 93 H 11/24/20 06:08 36.2 C L 100 H 18 144/93 H 95 11/23/20 22:35 36.6 C 77 16 114/67 96
[2020-11-24] MEDS: SENNA 8.6 MG TAB PO SCH (20:57)
[2020-11-25] MEDS: oxyCODONE HCL IR 5 MG TAB (IMMEDIATE RELEASE) PO PRN ×2 (03:59→13:48)
[2020-11-25] MEDS: ACETAMINOPHEN 500 MG TAB PO SCH ×3 (06:04→21:00)
[2020-11-25 06:26] LABS: Hematocrit (blood only) 32.7 % (42-52); Mean Corpuscular Hemoglobin 30.6 pg (25-34); Mean Corpuscular Hgb Conc 33.6 g/dL (32-36); Mean Corpuscular Volume 91.1 fL (80-100); Mean Platelet Volume 9.9 fL (7.4-10.4); Platelet Count 360 K/uL (130-400); RDW Standard Deviation 50.5 fL (36.4-46.3); Red Blood Count 3.59 M/uL (4.7-6.1); White Blood Count 7.94 K/uL (4.8-10.8)
[2020-11-25 07:00] LABS: BUN Creatinine Ratio 20.5 (10-20); Creatinine Clr Calc Pharmacy 39.9 ml/min; Est GFR (African American) 55.7 ml/min; Est GFR (Non-African American) 48.1 ml/min; Potassium 4.5 mmol/L (3.5-5.1)
--- NOTE | 2020-11-25 07:56 | Orthopedic Progress Note ---
Date of Service November 25, 2020 Assessment & Plan (1) Osteoarthritis of left knee: Plan: Postop day 6 status post left total knee arthroplasty. PT/OT protocols. Weightbearing as tolerated. DVT prophylaxis-apixaban p.o. twice daily, KAYLEY Bravo. Pain management as written. D/C planning-PT/OT recommending inpatient rehab/SNF. Continuing to await insurance authorization. Admission and Anticipated Discharge Date Admission Date: November 21, 2020 Subjective Postop day 6 Patient lying in bed awake and alert. No complaints this morning. Pain is controlled. Physical Exam Physical Exam: Anna dressing is clean, dry, and intact. Calves are soft nontender. Neurovascular intact. Toes are mobile. Results & Data ([facility]) Vital Signs (Past 12 Hours) Vital Signs Temp Pulse Resp BP Pulse Ox 11/24/20 22:37 36.4 C L 73 16 123/75 91
[2020-11-25] MEDS: metFORMIN HCL 500 MG TAB PO SCH (08:32)
[2020-11-25] MEDS: MULTIVITAMIN TAB PO SCH (08:33)
[2020-11-25] MEDS: APIXABAN 2.5 MG TAB PO SCH ×2 (08:33→20:56)
[2020-11-25] MEDS: GABAPENTIN 100 MG CAP PO SCH ×3 (08:33→20:56)
[2020-11-25] MEDS: DOCUSATE SODIUM 100 MG CAP PO SCH ×2 (08:33→20:56)
[2020-11-25] MEDS: allopurinoL 100 MG TAB PO SCH ×2 (08:33→20:55)
[2020-11-25] MEDS: PRAVASTATIN SOD 40 MG TAB PO SCH (08:34)
[2020-11-25] MEDS: ATENOLOL 50 MG TABLET PO SCH (08:34)
[2020-11-25] MEDS: INSULIN ASPART 100 UNITS/ML 3 ML PEN SC SCH ×4 (08:55→20:57)
[2020-11-25] MEDS: SENNA 8.6 MG TAB PO SCH (20:57)
[2020-11-26] MEDS: ACETAMINOPHEN 500 MG TAB PO SCH ×2 (06:06→13:55)
--- NOTE | 2020-11-26 08:22 | Orthopedic Progress Note ---
Date of Service November 26, 2020 Assessment & Plan (1) Osteoarthritis of left knee: Plan: Postop day 7 status post left total knee arthroplasty. PT/OT protocols. Weightbearing as tolerated. DVT prophylaxis-apixaban p.o. twice daily, SCDs, KAYLEY stallings. Pain management as written. Discontinue anna dressing today. D/C planning-PT/OT recommending inpatient rehab/SNF. Authorization approved for long term facility. Plan for discharge today. Admission and Anticipated Discharge Date Admission Date: November 21, 2020 Subjective Postop day 7 Patient lying in bed awake and alert. No complaints this morning. Pain controlled. Discussed the fact that he will be leaving today for long term facility at 1:00. No new complaints. Physical Exam Physical Exam: Anna dressing is clean, dry, and intact. Minimal swelling. Calves are soft and nontender. Neurovascular is intact. Toes are mobile. Results & Data ([facility]) Vital Signs (Past 12 Hours) Vital Signs Temp Pulse Pulse Resp BP Pulse Ox 11/26/20 07:27 36.6 C 73 16 113/65 91 11/25/20 22:36 36.5 C 81 16 109/69 92
[2020-11-26] MEDS: GABAPENTIN 100 MG CAP PO SCH ×2 (08:49→13:55)
[2020-11-26] MEDS: APIXABAN 2.5 MG TAB PO SCH (08:49)
[2020-11-26] MEDS: DOCUSATE SODIUM 100 MG CAP PO SCH (08:49)
[2020-11-26] MEDS: MULTIVITAMIN TAB PO SCH (08:50)
[2020-11-26] MEDS: allopurinoL 100 MG TAB PO SCH (08:50)
[2020-11-26] MEDS: PRAVASTATIN SOD 40 MG TAB PO SCH (08:50)
[2020-11-26] MEDS: metFORMIN HCL 500 MG TAB PO SCH (08:50)
[2020-11-26] MEDS: ATENOLOL 50 MG TABLET PO SCH (08:54)
[2020-11-26] MEDS: INSULIN ASPART 100 UNITS/ML 3 ML PEN SC SCH ×2 (08:59→12:57)
[2020-11-26] MEDS: oxyCODONE HCL IR 5 MG TAB (IMMEDIATE RELEASE) PO PRN (09:04)
--- NOTE | 2020-11-26 20:01 | Discharge Summary ---
Date of Service November 26, 2020 Admission HPI Per Admitting Provider 85 year old male with PMHx significant for DM2, HTN, high cholesterol, BPPV, afib presents with ongoing left knee pain. He has pain interfering with his daily activity. He has failed conservative management including injections and anti-inflammatories. He would like to proceed with knee replacement. Patient denies headaches, sweats, fevers, chills, double vision, blurred vision, cough, sore throat, dysphagia, chest pain, sob, wheezing, n/v/d/c, numbness, tingling, fatigue, urinary symptoms, mood disorders. ROS positive for left knee pain and stiffness. Admission Exam Per Admitting Provider Constitutional: well developed and well nourished; no acute distress Eyes: PERRL, conjunctivae normal, anicteric sclerae ENMT: external ear and nose normal, oropharynx normal Neck: trachea midline, no thyromegaly Respiratory: normal respiratory effort, lungs clear to auscultation Cardiovascular: RRR, no murmur, no edema Musculoskeletal: Left knee: Varus alignment, mild effusion with medial joint line tenderness. Positive Denis's. ROM 0-135. Stable to valgus and varus stress. Skin: no rashes, warm and dry Neurologic: patellar DTR's 2+ bilat, sensation intact Psychiatric: A+Ox3, euthymic affect Principal Diagnosis Left knee osteoarhritis Discharge Exam Constitutional well developed and well nourished; no acute distress Eyes PERRL, conjunctivae normal, anicteric sclerae ENMT external ear and nose normal, oropharynx normal Neck trachea midline, no thyromegaly Respiratory normal respiratory effort, lungs clear to auscultation Cardiovascular RRR, no murmur, no edema Skin no rashes, warm and dry Neurologic patellar DTR's 2+ bilat, sensation intact Psychiatric A+Ox3, euthymic affect Discharge Data Allergies Allergy/AdvReac Type Severity Reaction Status Date / Time bee venom protein (honey bee) Allergy Severe Anaphylaxis Verified 11/19/20 10:08 lisinopril Allergy Mild Cough Verified 11/19/20 10:08 Consultations 11/18/20 09:30 Consult Hospitalist Routine Procedures Performed Operation Date: 11/19/20 11:25 Actual Procedures p Left Total Knee Arthroplasty(Left) - Archie Foley MD Ordered Studies 11/19/20 12:06 US - OR guided needle placemen Stat Hospital Course (1) Osteoarthritis of left knee: Patient presented for same day admission following left total knee arthroplasty on 11/19/20. He tolerated procedure well. The Patient had an uneventful hospital course. He did have some intermittent confusion but this had improved. Post-operatively, his activity was progressed and well tolerated. They participated in PT with ambulation distance of 150 feet. ROM of operative knee reached 90 degrees. Labs remained stable- lowest hemoglobin recorded: 10.8, he also had increased creatinine but returned back to his baseline by POD#[address] Tim Menendez of medical service was consulted for medical management during admission. Pain controlled on oral medications. Please refer to daily progress notes and PT notes for complete details. After exam on 11/26/20, patient was felt to be stable for discharge to [facility]. Patient will f/u in the office in about 2 weeks for further evaluation including x-rays and incision check, sooner if having any issues or concerns. Postop day 7 status post left total knee arthroplasty. PT/OT protocols. Weightbearing as tolerated. DVT prophylaxis-apixaban p.o. twice daily, SCDs, KAYLEY stallings. Pain management as written. Discontinue zack dressing today. D/C planning-PT/OT recommending inpatient rehab/SNF. Authorization approved for snf facility. Plan for discharge today. Lab Results 11/19/20 11/19/20 11/19/20 Range/Units 09:57 09:59 09:59 WBC (4.8-10.8) K/uL RBC (4.7-6.1) M/uL Hgb (14.0-18.0) g/dL Hct (42-52) % MCV (80-100) fL MCH (25-34) pg MCHC (32-36) g/dL RDW Std Deviation (36.4-46.3) fL RDW Coeff of Bert (11.5-14.5) % Plt Count (130-400) K/uL MPV (7.4-10.4) fL Sodium (136-145) mmol/L Potassium (3.5-5.1) mmol/L Chloride (98-107) mmol/L Carbon Dioxide (21-32) mmol/L Anion Gap (3-11) BUN (7-18) mg/dl Creatinine (0.6-1.4) mg/dl Est Cr Clr Drug Dosing ml/min Est GFR ( Amer) ml/min Est GFR (Non-Af Amer) ml/min BUN/Creatinine Ratio (10-20) Glucose (70-99) mg/dl POC Glucose 146 H (70-99) mg/dl Calcium (8.5-10.1) mg/dl COVID-19 Eval Order Covid19 [facility] SARS-CoV-2, RNA, NAAT NEGATIVE (NEGATIVE) 11/19/20 11/19/20 11/19/20 Range/Units 15:18 16:57 20:47 WBC (4.8-10.8) K/uL RBC (4.7-6.1) M/uL Hgb (14.0-18.0) g/dL Hct (42-52) % MCV (80-100) fL MCH (25-34) pg MCHC (32-36) g/dL RDW Std Deviation (36.4-46.3) fL RDW Coeff of Bert (11.5-14.5) % Plt Count (130-400) K/uL MPV (7.4-10.4) fL Sodium (136-145) mmol/L Potassium (3.5-5.1) mmol/L Chloride (98-107) mmol/L Carbon Dioxide (21-32) mmol/L Anion Gap (3-11) BUN (7-18) mg/dl Creatinine (0.6-1.4) mg/dl Est Cr Clr Drug Dosing ml/min Est GFR ( Amer) ml/min Est GFR (Non-Af Amer) ml/min BUN/Creatinine Ratio (10-20) Glucose (70-99) mg/dl POC Glucose 114 H 127 H 136 H (70-99) mg/dl Calcium (8.5-10.1) mg/dl COVID-19 Eval Order SARS-CoV-2, RNA, NAAT (NEGATIVE) 11/20/20 11/20/20 11/20/20 Range/Units 05:54 05:54 08:21 WBC 10.82 H (4.8-10.8) K/uL RBC 4.04 L (4.7-6.1) M/uL Hgb 12.5 L (14.0-18.0) g/dL Hct 37.5 L (42-52) % MCV 92.8 (80-100) fL MCH 30.9 (25-34) pg MCHC 33.3 (32-36) g/dL RDW Std Deviation 50.9 H (36.4-46.3) fL RDW Coeff of Bert 14.9 H (11.5-14.5) % Plt Count 259 (130-400) K/uL MPV 10.1 (7.4-10.4) fL Sodium 137 (136-145) mmol/L Potassium 4.1 (3.5-5.1) mmol/L Chloride 107 (98-107) mmol/L Carbon Dioxide 27 (21-32) mmol/L Anion Gap 3.0 (3-11) BUN 34 H (7-18) mg/dl Creatinine 1.84 H (0.6-1.4) mg/dl Est Cr Clr Drug Dosing 28.8 ml/min Est GFR ( Amer) 37.6 ml/min Est GFR (Non-Af Amer) 32.5 ml/min BUN/Creatinine Ratio 18.6 (10-20) Glucose 134 H (70-99) mg/dl POC Glucose 125 H (70-99) mg/dl Calcium 8.2 L (8.5-10.1) mg/dl COVID-19 Eval Order SARS-CoV-2, RNA, NAAT (NEGATIVE) 11/20/20 11/20/20 11/20/20 Range/Units 12:21 17:10 20:54 WBC (4.8-10.8) K/uL RBC (4.7-6.1) M/uL Hgb (14.0-18.0) g/dL Hct (42-52) % MCV (80-100) fL MCH (25-34) pg MCHC (32-36) g/dL RDW Std Deviation (36.4-46.3) fL RDW Coeff of Bert (11.5-14.5) % Plt Count (130-400) K/uL MPV (7.4-10.4) fL Sodium (136-145) mmol/L Potassium (3.5-5.1) mmol/L Chloride (98-107) mmol/L Carbon Dioxide (21-32) mmol/L Anion Gap (3-11) BUN (7-18) mg/dl Creatinine (0.6-1.4) mg/dl Est Cr Clr Drug Dosing ml/min Est GFR ( Amer) ml/min Est GFR (Non-Af Amer) ml/min BUN/Creatinine Ratio (10-20) Glucose (70-99) mg/dl POC Glucose 171 H 249 H 135 H (70-99) mg/dl Calcium (8.5-10.1) mg/dl COVID-19 Eval Order SARS-CoV-2, RNA, NAAT (NEGATIVE) 11/21/20 11/21/20 11/21/20 Range/Units 07:49 08:13 12:08 WBC (4.8-10.8) K/uL RBC (4.7-6.1) M/uL Hgb (14.0-18.0) g/dL Hct (42-52) % MCV (80-100) fL MCH (25-34) pg MCHC (32-36) g/dL RDW Std Deviation (36.4-46.3) fL RDW Coeff of Bert (11.5-14.5) % Plt Count (130-400) K/uL MPV (7.4-10.4) fL Sodium 133 L (136-145) mmol/L Potassium 4.1 (3.5-5.1) mmol/L Chloride 103 (98-107) mmol/L Carbon Dioxide 23 (21-32) mmol/L Anion Gap 7.0 (3-11) BUN 41 H (7-18) mg/dl Creatinine 1.89 H (0.6-1.4) mg/dl Est Cr Clr Drug Dosing 28.1 ml/min Est GFR ( Amer) 36.4 ml/min Est GFR (Non-Af Amer) 31.4 ml/min BUN/Creatinine Ratio 21.5 H (10-20) Glucose 133 H (70-99) mg/dl POC Glucose 141 H 149 H (70-99) mg/dl Calcium 8.5 (8.5-10.1) mg/dl COVID-19 Eval Order SARS-CoV-2, RNA, NAAT (NEGATIVE) 08/11/21/20 11/22/20 Range/Units 17:02 20:30 06:35 WBC (4.8-10.8) K/uL RBC (4.7-6.1) M/uL Hgb (14.0-18.0) g/dL Hct (42-52) % MCV (80-100) fL MCH (25-34) pg MCHC (32-36) g/dL RDW Std Deviation (36.4-46.3) fL RDW Coeff of Bert (11.5-14.5) % Plt Count (130-400) K/uL MPV (7.4-10.4) fL Sodium (136-145) mmol/L Potassium (3.5-5.1) mmol/L Chloride (98-107) mmol/L Carbon Dioxide (21-32) mmol/L Anion Gap (3-11) BUN (7-18) mg/dl Creatinine (0.6-1.4) mg/dl Est Cr Clr Drug Dosing ml/min Est GFR ( Amer) ml/min Est GFR (Non-Af Amer) ml/min BUN/Creatinine Ratio (10-20) Glucose (70-99) mg/dl POC Glucose 148 H 198 H 137 H (70-99) mg/dl Calcium (8.5-10.1) mg/dl COVID-19 Eval Order SARS-CoV-2, RNA, NAAT (NEGATIVE) 11/22/20 11/22/20 11/22/20 Range/Units 06:54 11:50 16:56 WBC (4.8-10.8) K/uL RBC (4.7-6.1) M/uL Hgb (14.0-18.0) g/dL Hct (42-52) % MCV (80-100) fL MCH (25-34) pg MCHC (32-36) g/dL RDW Std Deviation (36.4-46.3) fL RDW Coeff of Bert (11.5-14.5) % Plt Count (130-400) K/uL MPV (7.4-10.4) fL Sodium 133 L (136-145) mmol/L Potassium 4.1 (3.5-5.1) mmol/L Chloride 104 (98-107) mmol/L Carbon Dioxide 23 (21-32) mmol/L Anion Gap 6.0 (3-11) BUN 34 H (7-18) mg/dl Creatinine 1.36 D (0.6-1.4) mg/dl Est Cr Clr Drug Dosing 39.0 ml/min Est GFR ( Amer) 54.2 ml/min Est GFR (Non-Af Amer) 46.8 ml/min BUN/Creatinine Ratio 25.1 H (10-20) Glucose 146 H (70-99) mg/dl POC Glucose 154 H 177 H (70-99) mg/dl Calcium 8.3 L (8.5-10.1) mg/dl COVID-19 Eval Order SARS-CoV-2, RNA, NAAT (NEGATIVE) 11/22/20 11/23/20 11/23/20 Range/Units 20:35 07:21 07:21 WBC 6.73 (4.8-10.8) K/uL RBC 3.56 L (4.7-6.1) M/uL Hgb 10.8 L (14.0-18.0) g/dL Hct 32.4 L (42-52) % MCV 91.0 (80-100) fL MCH 30.3 (25-34) pg MCHC 33.3 (32-36) g/dL RDW Std Deviation 50.6 H (36.4-46.3) fL RDW Coeff of Bert 15.1 H (11.5-14.5) % Plt Count 313 (130-400) K/uL MPV 10.1 (7.4-10.4) fL Sodium 134 L (136-145) mmol/L Potassium 4.4 (3.5-5.1) mmol/L Chloride 103 (98-107) mmol/L Carbon Dioxide 23 (21-32) mmol/L Anion Gap 7.0 (3-11) BUN 28 H (7-18) mg/dl Creatinine 1.36 (0.6-1.4) mg/dl Est Cr Clr Drug Dosing 39.0 ml/min Est GFR ( Amer) 54.2 ml/min Est GFR (Non-Af Amer) 46.8 ml/min BUN/Creatinine Ratio 20.7 H (10-20) Glucose 153 H (70-99) mg/dl POC Glucose 130 H (70-99) mg/dl Calcium 8.8 (8.5-10.1) mg/dl COVID-19 Eval Order SARS-CoV-2, RNA, NAAT (NEGATIVE) 11/23/20 11/23/20 11/23/20 Range/Units 07:54 12:17 17:11 WBC (4.8-10.8) K/uL RBC (4.7-6.1) M/uL Hgb (14.0-18.0) g/dL Hct (42-52) % MCV (80-100) fL MCH (25-34) pg MCHC (32-36) g/dL RDW Std Deviation (36.4-46.3) fL RDW Coeff of Bert (11.5-14.5) % Plt Count (130-400) K/uL MPV (7.4-10.4) fL Sodium (136-145) mmol/L Potassium (3.5-5.1) mmol/L Chloride (98-107) mmol/L Carbon Dioxide (21-32) mmol/L Anion Gap (3-11) BUN (7-18) mg/dl Creatinine (0.6-1.4) mg/dl Est Cr Clr Drug Dosing ml/min Est GFR ( Amer) ml/min Est GFR (Non-Af Amer) ml/min BUN/Creatinine Ratio (10-20) Glucose (70-99) mg/dl POC Glucose 173 H 146 H 148 H (70-99) mg/dl Calcium (8.5-10.1) mg/dl COVID-19 Eval Order SARS-CoV-2, RNA, NAAT (NEGATIVE) 11/23/20 11/24/20 11/24/20 Range/Units 20:30 05:45 06:27 WBC (4.8-10.8) K/uL RBC (4.7-6.1) M/uL Hgb (14.0-18.0) g/dL Hct (42-52) % MCV (80-100) fL MCH (25-34) pg MCHC (32-36) g/dL RDW Std Deviation (36.4-46.3) fL RDW Coeff of Bert (11.5-14.5) % Plt Count (130-400) K/uL MPV (7.4-10.4) fL Sodium 131 L (136-145) mmol/L Potassium 4.6 (3.5-5.1) mmol/L Chloride 104 (98-107) mmol/L Carbon Dioxide 21 (21-32) mmol/L Anion Gap 6.0 (3-11) BUN 29 H (7-18) mg/dl Creatinine 1.29 (0.6-1.4) mg/dl Est Cr Clr Drug Dosing 41.1 ml/min Est GFR ( Amer) 57.8 ml/min Est GFR (Non-Af Amer) 49.9 ml/min BUN/Creatinine Ratio 22.6 H (10-20) Glucose 157 H (70-99) mg/dl POC Glucose 166 H 165 H (70-99) mg/dl Calcium 8.9 (8.5-10.1) mg/dl COVID-19 Eval Order SARS-CoV-2, RNA, NAAT (NEGATIVE) 11/24/20 11/24/20 11/24/20 Range/Units 12:05 17:09 20:39 WBC (4.8-10.8) K/uL RBC (4.7-6.1) M/uL Hgb (14.0-18.0) g/dL Hct (42-52) % MCV (80-100) fL MCH (25-34) pg MCHC (32-36) g/dL RDW Std Deviation (36.4-46.3) fL RDW Coeff of Bert (11.5-14.5) % Plt Count (130-400) K/uL MPV (7.4-10.4) fL Sodium (136-145) mmol/L Potassium (3.5-5.1) mmol/L Chloride (98-107) mmol/L Carbon Dioxide (21-32) mmol/L Anion Gap (3-11) BUN (7-18) mg/dl Creatinine (0.6-1.4) mg/dl Est Cr Clr Drug Dosing ml/min Est GFR ( Amer) ml/min Est GFR (Non-Af Amer) ml/min BUN/Creatinine Ratio (10-20) Glucose (70-99) mg/dl POC Glucose 186 H 149 H 153 H (70-99) mg/dl Calcium (8.5-10.1) mg/dl COVID-19 Eval Order SARS-CoV-2, RNA, NAAT (NEGATIVE) 11/25/20 11/25/20 11/25/20 Range/Units 06:02 06:02 07:59 WBC 7.94 (4.8-10.8) K/uL RBC 3.59 L (4.7-6.1) M/uL Hgb 11.0 L (14.0-18.0) g/dL Hct 32.7 L (42-52) % MCV 91.1 (80-100) fL MCH 30.6 (25-34) pg MCHC 33.6 (32-36) g/dL RDW Std Deviation 50.5 H (36.4-46.3) fL RDW Coeff of Bert 15.0 H (11.5-14.5) % Plt Count 360 (130-400) K/uL MPV 9.9 (7.4-10.4) fL Sodium 131 L (136-145) mmol/L Potassium 4.5 (3.5-5.1) mmol/L Chloride 102 (98-107) mmol/L Carbon Dioxide 24 (21-32) mmol/L Anion Gap 5.0 (3-11) BUN 27 H (7-18) mg/dl Creatinine 1.33 (0.6-1.4) mg/dl Est Cr Clr Drug Dosing 39.9 ml/min Est GFR ( Amer) 55.7 ml/min Est GFR (Non-Af Amer) 48.1 ml/min BUN/Creatinine Ratio 20.5 H (10-20) Glucose 142 H (70-99) mg/dl POC Glucose 150 H (70-99) mg/dl Calcium 9.0 (8.5-10.1) mg/dl COVID-19 Eval Order SARS-CoV-2, RNA, NAAT (NEGATIVE) 11/25/20 11/25/20 11/25/20 Range/Units 12:08 17:02 20:33 WBC (4.8-10.8) K/uL RBC (4.7-6.1) M/uL Hgb (14.0-18.0) g/dL Hct (42-52) % MCV (80-100) fL MCH (25-34) pg MCHC (32-36) g/dL RDW Std Deviation (36.4-46.3) fL RDW Coeff of Bert (11.5-14.5) % Plt Count (130-400) K/uL MPV (7.4-10.4) fL Sodium (136-145) mmol/L Potassium (3.5-5.1) mmol/L Chloride (98-107) mmol/L Carbon Dioxide (21-32) mmol/L Anion Gap (3-11) BUN (7-18) mg/dl Creatinine (0.6-1.4) mg/dl Est Cr Clr Drug Dosing ml/min Est GFR ( Amer) ml/min Est GFR (Non-Af Amer) ml/min BUN/Creatinine Ratio (10-20) Glucose (70-99) mg/dl POC Glucose 227 H 174 H 178 H (70-99) mg/dl Calcium (8.5-10.1) mg/dl COVID-19 Eval Order SARS-CoV-2, RNA, NAAT (NEGATIVE) 11/26/20 11/26/20 11/26/20 Range/Units 08:13 12:06 12:50 WBC (4.8-10.8) K/uL RBC (4.7-6.1) M/uL Hgb (14.0-18.0) g/dL Hct (42-52) % MCV (80-100) fL MCH (25-34) pg MCHC (32-36) g/dL RDW Std Deviation (36.4-46.3) fL RDW Coeff of Bert (11.5-14.5) % Plt Count (130-400) K/uL MPV (7.4-10.4) fL Sodium (136-145) mmol/L Potassium (3.5-5.1) mmol/L Chloride (98-107) mmol/L Carbon Dioxide (21-32) mmol/L Anion Gap (3-11) BUN (7-18) mg/dl Creatinine (0.6-1.4) mg/dl Est Cr Clr Drug Dosing ml/min Est GFR ( Amer) ml/min Est GFR (Non-Af Amer) ml/min BUN/Creatinine Ratio (10-20) Glucose (70-99) mg/dl POC Glucose 151 H 168 H (70-99) mg/dl Calcium (8.5-10.1) mg/dl COVID-19 Eval [facility] SARS-CoV-2, RNA, NAAT (NEGATIVE) 11/26/20 Range/Units 12:50 WBC (4.8-10.8) K/uL RBC (4.7-6.1) M/uL Hgb (14.0-18.0) g/dL Hct (42-52) % MCV (80-100) fL MCH (25-34) pg MCHC (32-36) g/dL RDW Std Deviation (36.4-46.3) fL RDW Coeff of Bert (11.5-14.5) % Plt Count (130-400) K/uL MPV (7.4-10.4) fL Sodium (136-145) mmol/L Potassium (3.5-5.1) mmol/L Chloride (98-107) mmol/L Carbon Dioxide (21-32) mmol/L Anion Gap (3-11) BUN (7-18) mg/dl Creatinine (0.6-1.4) mg/dl Est Cr Clr Drug Dosing ml/min Est GFR ( Amer) ml/min Est GFR (Non-Af Amer) ml/min BUN/Creatinine Ratio (10-20) Glucose (70-99) mg/dl POC Glucose (70-99) mg/dl Calcium (8.5-10.1) mg/dl COVID-19 Eval Order SARS-CoV-2, RNA, NAAT NEGATIVE (NEGATIVE) Total Time Total Time Spent Total Time Spent (In Minutes): 20 Discharge Plan Discharge Items Patient Disposition: Transfer Long-Term Fac Reason For Visit: Unilateral Primary Osteoarthritis, Left Knee Discharge Diagnosis: Left knee osteoarthritis Activity: Per Instructions section Weightbearing: Left weightbearing Weightbearing Comment: As tolerated with walker Non-emergency contact: Surgeon Call non-emergency contact if: your pain is not controlled, your temperature is above 101.5, your wound has increased redness and your wound has increased drainage Follow-up/Referrals: Puneet Mercedes MD [Primary Care Provider] - Diet: Carb Consistent or DM2 Addtl Attending Provider Instructions: ACTIVITY RECOMMENDATIONS: SELF CARE INSTRUCTIONS AFTER TOTAL KNEE REPLACEMENT A. You may need to continue a physical therapy program after discharge from the hospital. There are several options available to you. Your doctor will assist you in selecting the best one for you. 1. An out-patient facility 2 to 3 times a week for therapy or home therapy. 2. Continue working on all exercises taught to you in the hospital. Your goals should be to increase bending of your knee to 90 degrees and beyond and to fully straighten your knee. B. You may progress at your own pace from walking with a walker or crutches to a cane; then to no assistive devices. C. Make walking a part of your daily routine. Be up as much as comfortable with rest periods throughout the day. Rest with leg elevation is very important. Use the ice wrap frequently for the first 3-4 weeks. D. There are no restrictions on activities. You may ride in a car, shop, participate in legal document assistant and all social activities. E. Wear the long elastic stockings (KAYLEY hose) 20 hours a day for 2 weeks after surgery. They can be removed several times a day for laundering and for a bath. F. You may shower, no tub baths until cleared by your doctor. SPECIAL CARE INSTRUCTIONS: VERY IMPORTANT TO READ AND REVIEW A. There are a few signs you need to watch for after you are home. Call [facility] if you notice any of the followin. Increased severe knee pain. Some pain is expected especially when you exercise. 2. Increased swelling in your leg or knee; pain or swelling of the calf muscle in either lower leg. 3. Any fluid drainage from the incision. 4. Shortness of breath or chest pain. B. Please call [facility] at if you have any concerns or questions about your operation or recovery. The doctor or his nurse will return your call promptly. C. You must take antibiotics before dental work, bladder, bowel or other surgery. Your doctor will provide you with a permanent care to carry describing this precaution. IMPORTANT: * REMEMBER TO TAKE APIXABAN 2.5MG , TWICE DAILY FOR 4 WEEKS UNLESS OTHERWISE DIRECTED. THIS IS YOUR BLOOD THINNER. * CALL IF INCREASED PAIN, REDNESS, DRAINAGE OR FEVER GREATER THAT 101. * WEAR KAYLEY HOSE 20 HOURS PER DAY FOR 2 WEEKS. * KEEP WOUND COVERED UNTIL SEEN BACK IN THE OFFICE (ABD OR 4X4'S). CHANGE DRESSING DAILY. IF WOUND IS DRY, CAN CHANGE EVERY OTHER DAY. IF INCISION IS LEAKING THROUGH DRESSING, CALL THE OFFICE . FOLLOW UP VISIT: If appointment is not already scheduled: Please call [facility] to make a follow-up appointment for 1 week at . Pending Studies at Discharge: No Stand-Alone Forms: My [facility] [employer] Skilled Items Patient informed of condition?: Yes DNR: No Discharge Level of Care: Skilled Communicable Disease: No Discharge Prognosis: Stable Lines: None Urinary Catheter: No Medications and DC Order Prescriptions: New acetaminophen [Tylenol Extra Strength] 500 mg Tablet 1,000 mg PO Q8 14 Days Qty: 84 RF: 0 polyethylene glycol 3350 [Miralax] 17 gram powder in packet 17 g PO DAILY PRN (Reason: constipation) Qty: 5 RF: 0 oxycodone 5 mg Tablet 5 mg PO Q4H MDD 6 PRN (Reason: pain) Qty: 30 RF: 0 Continued pravastatin 80 mg tablet 80 mg PO DAILY Qty: 90 RF: 3 allopurinol 100 mg tablet 100 mg PO BID Qty: 180 RF: 3 gabapentin 100 mg capsule 100 mg PO TID Qty: 270 RF: 3 metformin 500 mg tablet 500 mg PO DAILY Qty: 90 RF: 3 atenolol 50 mg tablet 50 mg PO DAILY Qty: 30 RF: 5 Eliquis 2.5 mg tablet 2.5 mg PO BID Qty: 180 RF: 3 Discharge Orders: Discharge Order (Routine); Ordered 11/26/20 Ordered By: Maximo Bailey/Other Patient Handouts: DVT Post Op Prevention, Post-Op Tips: Knee Admission Data Admit Date/Time: 11/21/20 14:10 Attending Provider: Archie Foley Admit Provider: Archie Foley Primary Care Provider: Puneet Mercedes Other Providers: Tim Menendez ; Stephanie Baer Diakon Other Interventions: Discharge Summary Assessment (RN) Last Done: 11/26/20 13:53
== END 2020-11-26 14:24 | DRG 470 ==
LOC: ASU 09:40 → 3E 09:40